=== PATIENT | male | born 1995 | race Caucasian/White ===

== ENCOUNTER 2016-08-03 12:39 | Emergency (ER) | payer OTHER ==
[~2016-08-03] VITALS: Ht 175.3 cm; Wt 95.6 kg
[~2016-08-03 12:39] MED LIST: ADAL40KI INJ; LORA10TA44 PO; PRLSR20 PO
[2016-08-03 12:50] VITALS: TEMP 36.8; Ht 175.3 cm; Wt 95.6 kg
[2016-08-03 13:27] LABS: BASO % 0.1 %; BASO ABS # 0.01 K/uL (0-0.2); COMPLETE YES; EOS % 0.1 %; HEMATOCRIT 45.2 % (42-52); IG% 0.3 %; LYMPH % 5.5 %; MEAN CELL VOLUME 85.4 fL (80-100); MEAN CORPUSCULAR HEMOGLOBIN 29.9 pg (25-34); MEAN PLATELET VOLUME 9.9 fL (7.4-10.4); MONO % 4.3 %; NEUT % 89.7 %; PLATELET COUNT 305 K/uL (130-400); RED BLOOD COUNT 5.29 M/uL (4.7-6.1); WHITE BLOOD COUNT 12.75 K/uL (4.8-10.8)
[2016-08-03 13:35] LABS: URINE APPEARANCE CLEAR (CLEAR); URINE BILIRUBIN NEG (NEG); URINE COLOR YELLOW; URINE NITRITE NEG (NEG); URINE SPECIFIC GRAVITY 1.018 (1.000-1.030); UROBILINOGEN NEG (NEG); ZZUR CULT IF INDIC CLEAN CATCH NO
[2016-08-03 13:46] LABS: ALT/SGPT 30 U/L (12-78); BLOOD UREA NITROGEN 13 mg/dl (7-18); BUN/CREATININE RATIO 17.4 (10-20); CALCIUM 9.9 mg/dl (8.5-10.1); CARBON DIOXIDE 22 mmol/L (21-32); CHLORIDE 103 mmol/L (98-107); CREATININE 0.73 mg/dl (0.60-1.40); GLUCOSE 94 mg/dl (70-99); SODIUM 138 mmol/L (136-145)
[2016-08-03 13:49] LABS: ALB/GLOB RATIO 1.4 (0.9-2); ALKALINE PHOSPHATASE 71 U/L (45-117); AST/SGOT 21 U/L (15-37)
[2016-08-03 13:52] LABS: MANUAL MICROSCOPIC REQUIRED? NO; REVIEW REQ? NO
--- NOTE | 2016-08-03 14:50 | DIAGNOSTIC IMAGING REPORT ---
CT ABD/PELVIS IV CONTRAST ONLY CLINICAL HISTORY: Nausea and constipation COMPARISON STUDY: 11/30/2015 TECHNIQUE: Following the IV administration of 120 mL of Optiray-320, CT scan of the abdomen and pelvis was performed from the lung bases to the proximal femurs. Images are reviewed in the axial, sagittal, and coronal planes. IV contrast was administered without complication. CT DOSE: 479.85 mGy.cm FINDINGS: Lower chest: There are minor bibasilar atelectatic changes. Liver: There is mild hepatic steatosis. No focal masses are visualized. Gallbladder: Unremarkable. Spleen: Normal in size and attenuation. Pancreas: Unremarkable. Adrenal glands: Unremarkable. Kidneys: There is symmetric renal cortical enhancement. The kidneys are normal in size without hydronephrosis. Bowel: There is abnormal bowel wall thickening involving the distal ileum. There are dilated fluid-filled small bowel loops similar to the preceding study. There is formed fecal material within these bowel loops. The findings are consistent with a low-grade small bowel obstruction. The distal ileal wall thickening is consistent with the clinical history of Crohn's disease. There are no fluid collections to indicate an abscess. The appendix appears normal. There is no acute diverticulitis. Peritoneum: There is low volume ascites. No free air is visualized Vasculature: The abdominal aorta is normal in course and caliber. Adenopathy: None. Pelvic viscera: The bladder, and pelvic viscera are unremarkable. Skeletal structures: No destructive osseous lesions are seen. IMPRESSION: 1. Persistent bowel wall thickening involving the ileum, consistent with the diagnosis of Crohn's. 2. Low volume ascites 3. Mildly dilated fluid-filled small bowel loops, proximal to the area of bowel wall thickening consistent with a low-grade small bowel obstruction 4. Normal appendix 5. No evidence of abscess. No evidence of free air. Electronically signed by: Nader Pappas M.D. 08/03/2016 2:48 PM Dictated Date/Time: 08/03/2016 2:43 PM
[2016-08-03] MEDS ORDERED: PRED20TA PO (15:55)
[2016-08-03] MEDS ORDERED: SODIUM CHLORIDE 0.9% 500ML 500 ML IV STA (15:56)
--- NOTE | 2016-08-03 15:56 | EMERGENCY ROOM VISIT NOTE ---
History Report prepared by Patricia: Adeola Henderson Under the Supervision of: Dr. Nando Hassan D.O. First contact with patient: 13:38 Chief Complaint: ABDOMINAL PAIN Stated Complaint: STOMACH CRAMPS, NAUSEA, MILD CONSTIPATION Nursing Triage Summary: Hx of Chrons. Had a flair up 6-7 months ago and had bowel obstruction. Pt presents woday with Chrons flair- abd pain, severe, mild constipation. History of Present Illness The patient is a 21 year old male who presents to the Emergency Room with complaints of persistent central abdominal pain that began around 0130 this morning. He currently rates his discomfort as a 5/10 in severity. The patient states that several months ago he experienced similar symptoms and was diagnosed with a small bowel obstruction. He states that he was evaluated in the hospital for two days following the diagnosis. The patient denies any previous abdominal surgeries. He additionally associates nausea, constipation, and reflux with his symptoms today. The patient states that his discomfort today does not seem to be as severe as when he had his small bowel obstruction, but states that he wanted to get it checked out prior to it becoming worse. Source of History: patient Onset: 0130 this morning Position: abdomen (central) Symptom Intensity: 5/10 Timing: other (persistent) Associated Symptoms: + nausea Note: Associated Symptoms: constipation, reflux Review of Systems See HPI for pertinent positives & negatives. A total of 10 systems reviewed and were otherwise negative. Past Medical & Surgical Medical Problems: (1) Crohn's disease (2) GERD (gastroesophageal reflux disease) (3) H/o adjustment disorder (4) History of oppositional defiant disorder (5) Small bowel obstruction Surgical Problems: (1) H/O colonoscopy (2) H/O esophagogastroduodenoscopy (3) Hx of tonsillectomy Family History Patient reports no known family medical history. Social History Smoking Status: Never Smoker Alcohol Use: occasionally Marital Status: single Occupation Status: employed Current/Historical Medications Scheduled Adalimumab (Humira Pen), 1 DOSE INJ [id number] Loratadine (Allergy), 10 MG PO QAM Omeprazole (Prilosec), 20 MG PO HS Prednisone (Prednisone), 2 TAB PO DAILY Allergies Coded Allergies: No Known Allergies (Unverified , 08/03/16) Physical Exam Vital Signs Date Time Temp Pulse Resp B/P Pulse Ox O2 Delivery O2 Flow Rate FiO2 08/03/16 14:28 93 18 133/78 95 Room Air 08/03/16 12:50 36.8 96 17 128/76 96 Room Air Physical Exam CONSTITUTIONAL/VITAL SIGNS: Reviewed / noted above. GENERAL: Non-toxic in appearance. INTEGUMENTARY: Warm, dry, and [place]. HEAD: Normocephalic. EYES: without scleral icterus or trauma. ENT/OROPHARYNX: clear and moist. LYMPHADENOPATHY/NECK: Is supple without lymphadenopathy or meningismus. RESPIRATORY: Lungs clear and equal. CARDIOVASCULAR: Regular rate and rhythm. GI/ABDOMEN: Tenderness to palpation of the right mid and lower abdomen, as well as less tenderness in right upper quadrant and epigastric. Soft. No organomegaly or pulsatile mass. No rebound or guarding. Normal bowel sounds. EXTREMITIES: Warm and well perfused. BACK: No CVA tenderness. NEUROLOGICAL: Intact without focal deficits. PSYCHIATRIC: normal affect. MUSCULOSKELETAL: Normally developed with good muscle tone. Medical Decision & Procedures ER Provider Diagnostic Interpretation: CT results as stated below per my review and radiologist interpretation: CT ABD/PELVIS IV CONTRAST ONLY CLINICAL HISTORY: Nausea and constipation COMPARISON STUDY: 11/30/2015 TECHNIQUE: Following the IV administration of 120 mL of Optiray-320, CT scan of the abdomen and pelvis was performed from the lung bases to the proximal femurs. Images are reviewed in the axial, sagittal, and coronal planes. IV contrast was administered without complication. CT DOSE: 479.85 mGy.cm FINDINGS: Lower chest: There are minor bibasilar atelectatic changes. Liver: There is mild hepatic steatosis. No focal masses are visualized. Gallbladder: Unremarkable. Spleen: Normal in size and attenuation. Pancreas: Unremarkable. Adrenal glands: Unremarkable. Kidneys: There is symmetric renal cortical enhancement. The kidneys are normal in size without hydronephrosis. Bowel: There is abnormal bowel wall thickening involving the distal ileum. There are dilated fluid-filled small bowel loops similar to the preceding study. There is formed fecal material within these bowel loops. The findings are consistent with a low-grade small bowel obstruction. The distal ileal wall thickening is consistent with the clinical history of Crohn's disease. There are no fluid collections to indicate an abscess. The appendix appears normal. There is no acute diverticulitis. Peritoneum: There is low volume ascites. No free air is visualized Vasculature: The abdominal aorta is normal in course and caliber. Adenopathy: None. Pelvic viscera: The bladder, and pelvic viscera are unremarkable. Skeletal structures: No destructive osseous lesions are seen. IMPRESSION: 1. Persistent bowel wall thickening involving the ileum, consistent with the diagnosis of Crohn's. 2. Low volume ascites 3. Mildly dilated fluid-filled small bowel loops, proximal to the area of bowel wall thickening consistent with a low-grade small bowel obstruction 4. Normal appendix 5. No evidence of abscess. No evidence of free air. Electronically signed by: Nader Pappas M.D. 08/03/2016 2:48 PM Dictated Date/Time: 08/03/2016 2:43 PM Laboratory Results 08/03/16 13:07 Red Blood Count 5.29, Mean Corpuscular Volume 85.4, Mean Corpuscular Hemoglobin 29.9, Mean Corpuscular Hemoglobin Concent 35.0, Mean Platelet Volume 9.9, Neutrophils (%) (Auto) 89.7, Lymphocytes (%) (Auto) 5.5, Monocytes (%) (Auto) 4.3, Eosinophils (%) (Auto) 0.1, Basophils (%) (Auto) 0.1, Neutrophils # (Auto) 11.44, Lymphocytes # (Auto) 0.70, Monocytes # (Auto) 0.55, Eosinophils # (Auto) 0.01, Basophils # (Auto) 0.01 08/03/16 13:07 Test 08/03/16 13:07 White Blood Count 12.75 K/uL (4.8-10.8) Red Blood Count 5.29 M/uL (4.7-6.1) Hemoglobin 15.8 g/dL (14.0-18.0) Hematocrit 45.2 % (42-52) Mean Corpuscular Volume 85.4 fL (80-100) Mean Corpuscular Hemoglobin 29.9 pg (25-34) Mean Corpuscular Hemoglobin Concent 35.0 g/dl (32-36) Platelet Count 305 K/uL (130-400) Mean Platelet Volume 9.9 fL (7.4-10.4) Neutrophils (%) (Auto) 89.7 % Lymphocytes (%) (Auto) 5.5 % Monocytes (%) (Auto) 4.3 % Eosinophils (%) (Auto) 0.1 % Basophils (%) (Auto) 0.1 % Neutrophils # (Auto) 11.44 K/uL (1.4-6.5) Lymphocytes # (Auto) 0.70 K/uL (1.2-3.4) Monocytes # (Auto) 0.55 K/uL (0.11-0.59) Eosinophils # (Auto) 0.01 K/uL (0-0.5) Basophils # (Auto) 0.01 K/uL (0-0.2) RDW Standard Deviation 39.1 fL (36.4-46.3) RDW Coefficient of Variation 12.6 % (11.5-14.5) Immature Granulocyte % (Auto) 0.3 % Immature Granulocyte # (Auto) 0.04 K/uL (0.00-0.02) Urine Color YELLOW Urine Appearance CLEAR (CLEAR) Urine pH 7.0 (4.5-7.5) Urine Specific Melvin 1.018 (1.000-1.030) Urine Protein NEG (NEG) Urine Glucose (UA) NEG (NEG) Urine Ketones 3+ (NEG) Urine Occult Blood NEG (NEG) Urine Nitrite NEG (NEG) Urine Bilirubin NEG (NEG) Urine Urobilinogen NEG (NEG) Urine Leukocyte Esterase NEG (NEG) Anion Gap 13.0 mmol/L (3-11) Est Creatinine Clear Calc Drug Dose 181.1 ml/min Estimated GFR () > 150.0 Estimated GFR (Non- 131.7 BUN/Creatinine Ratio 17.4 (10-20) Calcium Level 9.9 mg/dl (8.5-10.1) Total Bilirubin 0.5 mg/dl (0.2-1) Aspartate Amino Transf (AST/SGOT) 21 U/L (15-37) Alanine Aminotransferase (ALT/SGPT) 30 U/L (12-78) Alkaline Phosphatase 71 U/L (45-117) Total Protein 8.0 gm/dl (6.4-8.2) Albumin 4.7 gm/dl (3.4-5.0) Globulin 3.3 gm/dl (2.5-4.0) Albumin/Globulin Ratio 1.4 (0.9-2) Lipase 147 U/L (73-393) Laboratory results as stated above per my review. Medications Administered Medications (Trade) Dose Ordered Sig/Avery Route Start Time Stop Time Status Last Admin Dose Admin Prednisone 60 mg 60 mg NOW STAT PO 08/03/16 15:51 08/03/16 15:52 DC 08/03/16 16:04 60 MG Sodium Chloride (Nss 500ml) 500 ml @ 999 mls/hr Q31M STAT IV 08/03/16 15:56 08/03/16 16:26 08/03/16 15:56 999 MLS/HR ED Course 1338: Previous medical records were reviewed. The patient was evaluated in room C11B. A complete history and physical examination was performed. 1546: I discussed the patients case with Ruby Loving PA-C ( Gastroenterology). She states that the patient should be started on Prednisone and should follow up with their office this week. 1551: Ordered Prednisone 60 mg PO. 1556: I reevaluated the patient and he is resting comfortably. I discussed the exam findings with him and I discussed the treatment plan. He verbalized complete understanding and agreement. He is ready to go home. Ordered Sodium Chloride 500 ml @ 999 mls/hr IV. Medical Decision Differential considered: pancreatitis, hepatitis, or acute cholecystitis, AAA, UTI, pyelonephritis, kidney stones, appendicitis, diverticulitis, shingles, bowel obstruction mesenteric ischemia, intussusception,hernia, testicular torsion. This is a 21-year-old male who presents to the ED with a chief complaint of abdominal pain. The patient felt like he was mildly constipated. He had some right-sided mid and lower abdominal discomfort. His vital signs are normal. Symptoms started around 1:30 this morning. His exam revealed some mild tenderness to the right abdominal region as noted above. He was without peritonitis. White blood cell count was 12.75. Metabolic panel was unremarkable. Urine revealed some ketones. CT scan of the abdomen and pelvis reveals some findings suggestive of Crohn's disease and a low-grade small bowel obstruction. The patient was told the results of the tests. He was given some oral prednisone after speaking with the GI service. He was hydrated with some IV fluids. They will follow-up with him in 1-2 days for recheck. Consults Time Called: 1540 Consulting Physician: Ruby Loving PA-C (Gastroenterology) Returned Call: 0924 I discussed the patients case with Ruby Loving PA-C (Gastroenterology). She states that the patient should be started on Prednisone and should follow up with their office this week. Impression Primary Impression: Crohn's disease Additional Impression: Small bowel obstruction Scribe Attestation The scribe's documentation has been prepared under my direction and personally reviewed by me in its entirety. I confirm that the note above accurately reflects all work, treatment, procedures, and medical decision making performed by me. Departure Information Dispostion Home / Self-Care Prescriptions Prednisone (Prednisone) 20 Mg Tab 2 TAB PO DAILY for 4 Days, #8 TAB Prov: Nando Hassan D.O. 08/03/16 Referrals No Doctor, Assigned (PCP) Forms HOME CARE DOCUMENTATION FORM, IMPORTANT VISIT INFORMATION Patient Instructions My [facility] Additional Instructions Liquid diet for now. Follow-up with the GI service tomorrow or the next day. Call tomorrow for an appointment. Return for worsening or new concerns. Prednisone as prescribed. Problem Qualifiers
[2016-08-03 16:37] VITALS: BP 125/70; PULSE 73; O2SAT 97
== END 2016-08-03 16:37 | disposition home or self-care (01) ==
LOC: C.EDB 12:40 → C.EDC 16:37
DX: K50.912 Crohn's disease, unspecified, with intestinal obstruction (principal); K56.60 Unspecified intestinal obstruction; K21.9 Gastro-esophageal reflux disease without esophagitis; Z79.899 Other long term (current) drug therapy

== ENCOUNTER → 2017-05-25 | Outpatient (CLI) | payer OTHER ==
[2017-05-25 14:42] LABS: BASO % 0.1 %; BASO ABS # 0.01 K/uL (0-0.2); COMPLETE YES; EOS % 0.9 %; IG% 0.3 %; LYMPH ABS # 0.96 K/uL (1.2-3.4); MEAN CELL VOLUME 86.3 fL (80-100); MEAN CORPUSCULAR HEMOGLOBIN 29.5 pg (25-34); MEAN CORPUSCULAR HGB CONC 34.2 g/dl (32-36); MEAN PLATELET VOLUME 9.3 fL (7.4-10.4); MONO % 8.8 %; NEUT % 77.9 %; PLATELET COUNT 313 K/uL (130-400); RED BLOOD COUNT 4.98 M/uL (4.7-6.1)
[2017-05-25 15:10] LABS: ALT/SGPT 35 U/L (12-78); AST/SGOT 22 U/L (15-37); BLOOD UREA NITROGEN 11 mg/dl (7-18); BUN/CREATININE RATIO 15.1 (10-20); C-REACTIVE PROTEIN < 0.29 mg/dl (0-0.29); CALCIUM 8.9 mg/dl (8.5-10.1); CARBON DIOXIDE 26 mmol/L (21-32); CHLORIDE 107 mmol/L (98-107); CREATININE 0.73 mg/dl (0.60-1.40); GLUCOSE 91 mg/dl (70-99); POTASSIUM 3.8 mmol/L (3.5-5.1); SODIUM 141 mmol/L (136-145)
[2017-05-25 15:13] LABS: ALB/GLOB RATIO 1.2 (0.9-2); ALKALINE PHOSPHATASE 75 U/L (45-117)
[2017-05-27 13:21] LABS: QUANTIF TB AG-NIL <0.00 IU/ML; QUANTIFERON NIL 0.06 IU/ML
[2017-06-01 11:31] LABS: IGA SERUM 192 mg/dL (81-463); TIS TRANS IGA 1 U/mL (<4)
== END | disposition home or self-care (01) ==
LOC: C.LAB1850 13:53
PROVIDERS: ATTEND Registered Nurse
DX: R07.89 Other chest pain (principal)

== ENCOUNTER → 2017-05-27 | Day surgery (SDC) | payer OTHER ==
[~2017-05-27] VITALS: Ht 175.3 cm; Wt 90.9 kg
[~2017-05-27] MED LIST changes: +FENTANYL CITRATE INJ 50 MCG/1 ML 2 ML VIAL ONE; +LIDOCAINE HCL 2% 2 ML VIAL (20MG/ML) ONE; +PROPOFOL IV EMULSION 10 MG/ML 20 ML VIAL IV ONE; +SODIUM CHLORIDE 0.9% 500ML 500 ML IV ONE
[2017-05-27 12:10] VITALS: Ht 175.3 cm; Wt 90.9 kg
--- NOTE | 2017-05-27 12:27 | Endo History and Physical ---
History & Physical Date of Service: May 27, 2017. Chief Complaint: CHEST PAIN, REFLUX Referring Physician: DR. GONZALEZ History of Present Illness 22 yo CM who presents for EGD secondary to GERD and Chest pain. Past Surgical History Hx Cardiac Surgery: No Hx Internal Defibrillator: No Hx Pacemaker: No Hx Abdominal Surgery: No Hx of Implantable Prosthesis: No Hx Post-Op Nausea and Vomiting: No Hx Cancer Surgery: No Hx Thoracic Surgery: No Hx Orthopedic: No Hx Urinary Tract Surgery: No Family History None Social History Smoking Status: Never Smoker Hx Substance Use: No Hx Alcohol Use: No (QUIT 6 MONTHS AGO) Allergies Coded Allergies: No Known Allergies (Unverified , 05/27/17) Current Medications Reported Home Medications Medications Dose Route/Sig Max Daily Dose Days Date Category Allergy (Loratadine) 10 Mg Tab 10 Mg PO QAM 07/06/16 Reported Humira Pen (Adalimumab) 40 Mg/0.8 Ml Kit 1 Dose INJ [id number] 07/06/16 Reported Prilosec (Omeprazole) 20 Mg Capcr 20 Mg PO HS 07/06/16 Reported Vital Signs Weight (Kilograms): 90.91 Height (Feet): 5 Height (Inches): 9 Date Time Temp Pulse Resp B/P (MAP) Pulse Ox O2 Delivery O2 Flow Rate FiO2 05/27/17 12:23 37 65 16 110/59 (76) 97 Room Air Physical Exam General Appearance: WD/WN, no apparent distress Respiratory/Chest: Auscultation: breath sounds normal Cardiovascular: Heart Auscultation: RRR Abdomen: Bowel Sounds: normal Inspection & Palpation: soft, non-distended, no tenderness, guarding & rebound Assessment and Plan Assessment: 22 yo CM who presents for EGD secondary to GERD and Chest pain. Plan: Proceed with EGD.
--- NOTE | 2017-05-27 12:54 | Discharge Instructions ---
Endoscopy Patient Instructions Date / Procedure(s) Performed May 27, 2017. EGD Allergy Information Coded Allergies: No Known Allergies (Unverified , 05/27/17) Discharge Date / Findings May 27, 2017. Gastric antrum biopsies Medication Instructions OK to resume all medications today as prescribed Reported Home Medications Medications Dose Route/Sig Max Daily Dose Days Date Category Allergy (Loratadine) 10 Mg Tab 10 Mg PO QAM 07/06/16 Reported Humira Pen (Adalimumab) 40 Mg/0.8 Ml Kit 1 Dose INJ [id number] 07/06/16 Reported Prilosec (Omeprazole) 20 Mg Capcr 20 Mg PO HS 07/06/16 Reported Provider Instructions Activity Restrictions - No exercising or heavy lifting for 24 hours. - Do not drink alcohol the day of the procedure. - Do not drive a car or operate machinery until the day after the procedure. - Do not make any important decisions or sign important papers in 24 hours after the procedure. Following Day: - Return to full activity which may include returning to work/school. Diet Start your diet with liquids and light foods (jello, soup, juice, toast). Then eat your usual diet if not nauseated. Treatment For Common After Affects For mild abdominal pain, bloating, or excessive gas: - Rest - Eat lightly - Lie on right side Follow-Up Information Follow-up with DR. GONZALEZ as scheduled Anesthesia Information What You Should Know You have had a procedure that required some medicine to reduce anxiety and discomfort. This treatment is called moderate sedation. After receiving the treatment, you may be sleepy, but you will be able to breathe on your own. The effects of the treatment may last for several hours. Follow these instructions along with Activity/Diet recommendations noted above: * Do NOT do anything where dizziness or clumsiness would be dangerous. * Rest quietly at home today, then you can be up and about tomorrow. * Have a responsible person stay with you the rest of today. * You may have had an I.V. today. If so, you may take the dressing off later today. Recommendations Call your doctor if: * Trouble breathing * Continuous vomiting for more than 24 hours * Temperature above 101 degrees * Severe abdominal pain or bloating * Pain not relieved by pain medicine ordered * There is increased drainage or redness from any incision * A large amount of rectal bleeding greater than 2-3 tablespoons. (If you had a polyp/s removed or have hemorrhoids, a small amount of blood - from the rectum is to be expected.) * You have any unanswered questions or concerns. IN THE EVENT OF A SERIOUS EMERGENCY, GO TO THE NEAREST EMERGENCY ROOM Your discharge instructions were prepared by provider Victor Manuel Marie. Patient Instructions Signature Page Niall Womack Patient (or Guardian) Signature/Date: I have read and understand the instructions given to me by my caregivers. Caregiver/RN/Doctor Signature/Date: The above-named patient and/or guardian has received patient instructions on this date. + Original Patient Signature Page (only) stays with chart. Please make copy for patient.
--- NOTE | 2017-05-27 13:02 | GI REPORT ---
Procedure Date: 05/27/2017 12:34 PM Procedure: Upper GI endoscopy Indications: Gastro-esophageal reflux disease, Unexplained chest pain Medicines: Monitored Anesthesia Care Complications: No immediate complications. Estimated Blood Loss: Estimated blood loss: none. Procedure: Pre-Anesthesia Assessment: - Prior to the procedure, a History and Physical was performed, and patient medications and allergies were reviewed. The patient's tolerance of previous anesthesia was also reviewed. The risks and benefits of the procedure and the sedation options and risks were discussed with the patient. All questions were answered, and informed consent was obtained. Prior Anticoagulants: The patient has taken no previous anticoagulant or antiplatelet agents. ASA Grade Assessment: II - A patient with mild systemic disease. After reviewing the risks and benefits, the patient was deemed in satisfactory condition to undergo the procedure. After obtaining informed consent, the endoscope was passed under direct vision. Throughout the procedure, the patient's blood pressure, pulse, and oxygen saturations were monitored continuously. The Scope was introduced through the mouth, and advanced to the second part of duodenum. The upper GI endoscopy was accomplished without difficulty. The patient tolerated the procedure well. Findings: The esophagus was normal. The entire examined stomach was normal. Biopsies were taken with a cold forceps for histology. The examined duodenum was normal. Impression: - Normal esophagus. - Normal stomach. Biopsied. - Normal examined duodenum. Recommendation: - Resume previous diet. - Continue present medications. - Await pathology results. - Return to primary care physician as previously scheduled. Victor Manuel Marie, 05/27/2017 1:02:33 PM This report has been signed electronically. Note Initiated On: 05/27/2017 12:34 PM I attest to the content of the Intraoperative Record and orders documented therein, exceptions below
--- NOTE | 2017-05-27 13:11 | Anesthesiology Progress Note ---
Anesthesia Post Op Note Date & Time May 27, 2017 at 13:11 Vital Signs Pain Intensity: 0 Vital Signs Past 12 Hours Date Time Temp Pulse Resp B/P (MAP) Pulse Ox O2 Delivery O2 Flow Rate FiO2 05/27/17 12:58 103 16 108/64 (79) 94 Room Air 05/27/17 12:23 37 65 16 110/59 (76) 97 Room Air Notes Mental Status: alert / awake / arousable, participated in evaluation Pt Amnestic to Procedure: Yes Nausea / Vomiting: adequately controlled Pain: adequately controlled Airway Patency, RR, SpO2: stable & adequate BP & HR: stable & adequate Hydration State: stable & adequate Anesthetic Complications: no major complications apparent
[2017-05-27 13:18] VITALS: BP 115/74; PULSE 90; O2SAT 97
== END | disposition home or self-care (01) ==
LOC: C.GI 11:09
PROVIDERS: ATTEND Internal Medicine
DX: K29.60 Other gastritis without bleeding (principal); K21.9 Gastro-esophageal reflux disease without esophagitis; K50.90 Crohn's disease, unspecified, without complications; Z79.899 Other long term (current) drug therapy